=== PATIENT | male | born 1970 | race Caucasian/White ===

== ENCOUNTER 2016-12-16 12:32 | Day surgery (SDC) | payer BC ==
[~2016-12-16] VITALS: Ht 182.9 cm; Wt 103.7 kg
[2016-12-16 15:09] VITALS: Ht 182.9 cm; Wt 103.7 kg
[2016-12-16 15:50] VITALS: BP 124/64; PULSE 73; RESP 24
[2016-12-16] MEDS ORDERED: PROPOFOL 40 ML ONE (16:03)
[2016-12-16] MEDS ORDERED: FLONASE NASAL (16:15)
[2016-12-16] MEDS ORDERED: DOCUSATE SODIUM PO (16:15)
[2016-12-16] MEDS ORDERED: SERT-165 PO (16:15)
[2016-12-16] MEDS ORDERED: IBUP400T22 PO (16:15)
[2016-12-16] MEDS ORDERED: AMIT50TA3 PO (16:15)
[2016-12-16] MEDS ORDERED: LEVO100T87 PO (16:15)
[2016-12-16] MEDS ORDERED: SIMETHICONE PO (16:15)
[2016-12-16] MEDS ORDERED: METH750T2 PO (16:15)
[2016-12-16] MEDS ORDERED: IMODIUM A-D PO (16:15)
[2016-12-16] MEDS ORDERED: ALKA-SELTZER PO (16:15)
[2016-12-16] MEDS ORDERED: POLY17PO6 PO (16:15)
[2016-12-16] MEDS ORDERED: ATOR40TA68 PO (16:15)
[2016-12-16] MEDS ORDERED: METO25TA4 PO (16:15)
[2016-12-16] MEDS ORDERED: CLON1TAB28 PO (16:15)
[2016-12-16] MEDS ORDERED: DIPH25TA68 PO (16:15)
[2016-12-16] MEDS ORDERED: MAGN500C PO (16:15)
[2016-12-16] MEDS ORDERED: DIVA500T15 PO (16:15)
[2016-12-16] MEDS ORDERED: PROPOFOL 20 ML ONE (17:06)
[2016-12-16 17:32] VITALS: BP 120/62; RESP 20
--- NOTE | 2016-12-16 22:22 | GILP ---
DATE OF PROCEDURE: 12/16/2016 PROCEDURE: Colonoscopy with saline-assisted polypectomy plus localization tattoo, plus endoclip christine cement, and colonoscopy with biopsies. SURGEON: Dayo Guzman MD BRIEF HISTORY AND INDICATIONS: The patient with a family history of colon cancer and diarrhea. PREMEDICATION: Monitored anesthesia care by anesthesiologist. INSTRUMENT USED: Olympus colonoscope. PREPARATION: Adequate. TECHNIQUE: After informed consent, with the patient/relatives understanding the procedure, its indic ations potential risks and complications, including but not limited to: allergic reaction, bleeding, perforation, infection, missed lesions and after all pertinent questions were answered to the patie nt's satisfaction, the patient/relatives signed the witnessed informed consent. Following this, premedication was administered slowly IV push by under careful cardiovascular and re spiratory monitoring with pulse oximetry, automatic blood pressure and satellite project site monitor. Once the sedativ e effect was achieved, the patient was placed in the left lateral decubitus position, digital rectal examination was performed. The colonoscope was then introduced and advanced under visual control th roughout all segments of the colon including: the rectum, sigmoid, descending colon, splenic flexure , transverse colon, hepatic flexure, ascending colon and finally reaching the cecum which was clearl y identified by transillumination, finger indentation and the ileocecal valve. Careful examination o f the mucosa of the lower gastrointestinal tract both on insertion as well as withdrawal of the inst rument disclosed the following findings: Rectal Examination: No evidence of perirectal disease, no masses. Colonic Mucosa: The colonic mucosa unremarkable throughout until we reached the mid ascending colon where a 10 mm sessile polyp was identified. The remainder of colonic mucosa was unremarkable. The preparation in the deep cecum is slightly compromised, extensive lavage was applied. No gross lesi ons are present. At this point, the instrument was brought back into the area of the ascending colo n. The polyp was again identified. Saline-assisted polypectomy was performed without difficulty in a piecemeal fashion and what appears to be a complete or near complete resection. Localization tat too had been applied previously in the adjacent area. At this point, given the magnitude of the res ection, 2 endoclips were applied to approximate the edges with no difficulty, and following this the specimens were retrieved. Random biopsies were obtained on the right and left side of the colon an d the instrument was withdrawn. On withdrawal of the instrument, moderate-sized internal hemorrhoid s are noted. The instrument was then withdrawn, the patient tolerated the procedure well and was transferred out of the Endoscopy Suite awake and in good condition to continue recovery under observation. IMPRESSION: 1. A 10 mm sessile polyp in the ascending colon post saline-assisted polypectomy with endoclip clos ure and localization tattoo application. 2. Otherwise, normal colonic mucosa, rule out microscopic lymphocytic collagenous colitis, biopsies obtained. 2. Moderate-sized internal hemorrhoids. PLAN: 1. Clear liquid diet for the next 12-24 hours. 2. Close observation for any evidence or complication. 3. Pathology will review this as soon as it is available. Pending review of pathology, early surve illance reevaluation for completeness of resection in 6 months is recommended. Dictated By: DAYO GUZMAN MS/LAURA Conf#: [id number] DID#: [id number]
--- NOTE | 2016-12-16 22:28 | GILP ---
DATE OF PROCEDURE: 12/16/2016 PROCEDURE: Esophagogastroduodenoscopy with biopsies. 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 PREMEDICATION: Monitored anesthesia care by anesthesiologist. INSTRUMENT USED: Olympus endoscope. TECHNIQUE: After informed consent, with the patient/relatives understanding the procedure, its indic ations, potential risks and complications, including but not limited to: allergic reaction, bleeding , perforation or infection, and after all pertinent questions were answered to the patients satisfac tion, the patient/relatives signed witnessed informed consent. Following this, premedication was administered slowly IV push under careful cardiovascular and respi ratory monitoring with pulse oximetry, automatic blood pressure and threat monitoring analyst. Once the sedative effect was achieved the patient was place in the left lateral decubitus, the panen doscope was introduced and advanced under visual control. Careful examination of the upper gastrointestinal tract, both on insertion as well as withdrawal of the instrument disclosed the following findings: ESOPHAGUS: The distal esophagus shows irregularity of the EG junction, as well as erythema and teresa a of the mucosa. Biopsies were obtained with previous known history of Salazar's esophagus. STOMACH: Upon entrance to the stomach, air was insufflated, the gastric hameed distended normally. There is erythema and edema of the mucosa of a moderate degree. Biopsies were obtained to rule out H. pylori infection. PYLORUS: The pylorus appears patent and within normal limits, with no evidence of gastric outlet ob struction. DUODENUM: The duodenal mucosa was carefully examined in the duodenal bulb as well as the second por tion of the duodenum and appears unremarkable with no evidence of duodenitis, ulcer or neoplasm. The instrument was then withdrawn, the patient tolerated the procedure well and was transfer out of the endoscopy suite awake, and in good condition to continue recovery under observation IMPRESSION: 1. Salazar's esophagus, 4-quadrant biopsies obtained. 2. Esophagitis, mild. 3. Gastritis, moderate, rule out Helicobacter pylori infection, biopsies obtained. PLAN: 1. PPI therapy. 2. Pathology will be reviewed as soon as available. 3. Surveillance in 1-2 years is recommended pending review of pathology. Dictated By: DAYO GUZMAN MS/LAURA Conf#: [id number] DID#: [id number]
== END 2016-12-16 19:00 | disposition home or self-care (01) ==
LOC: GIL 12:32
PROVIDERS: ATTEND Internal Medicine Gastroenterology
DX: K21.0 Gastro-esophageal reflux disease with esophagitis (principal); D12.2 Benign neoplasm of ascending colon; K63.5 Polyp of colon; K22.70 Barrett's esophagus without dysplasia; K29.70 Gastritis, unspecified, without bleeding; K64.8 Other hemorrhoids; E03.9 Hypothyroidism, unspecified; E78.5 Hyperlipidemia, unspecified; E66.9 Obesity, unspecified; Z68.31 Body mass index [BMI] 31.0-31.9, adult; F41.8 Other specified anxiety disorders
CPT/HCPCS: 43239; 45381; 45385; 88305; 88312; 88313; Z7610